=== PATIENT | male | born 1965 | race Caucasian/White ===

== ENCOUNTER 2020-06-10 07:13 | Outpatient (CLI) | payer OTHER | END 2020-06-10 23:59 | disposition home or self-care (01) | LOC: LAB 07:13 | PROVIDERS: ATTEND Orthopaedic Surgery | DX: Z01.812 Encounter for preprocedural laboratory examination (principal); Z11.59 Encounter for screening for other viral diseases; S83.231D Complex tear of medial meniscus, current injury, right knee, subsequent encounter; X58.XXXD Exposure to other specified factors, subsequent encounter ==

== ENCOUNTER 2020-06-11 10:04 | Outpatient (CLI) | payer OTHER ==
[2020-06-11 10:31] LABS: BASOPHILS % (AUTO) 0.9 % (0.0-2.0); EOSINOPHILS # (AUTO) 0.1 K/uL (0.0-0.7); EOSINOPHILS % (AUTO) 1.9 % (0.0-7.0); HEMATOCRIT 45.8 % (36.7-47.1); HEMOGLOBIN 15.3 g/dL (12.5-16.3); LYMPHOCYTES # (AUTO) 1.6 K/uL (20.0-40.0); LYMPHOCYTES % (AUTO) 29.9 % (20.5-51.5); MEAN CORPUSCULAR HEMOGLOBIN 28.2 uug (23.8-33.4); MEAN CORPUSCULAR HGB CONC 33 g/dL (32.5-36.3); MEAN CORPUSCULAR VOLUME 84.5 fL (73.0-96.2); MONOCYTES # (AUTO) 0.6 K/uL (2.0-10.0); MONOCYTES % (AUTO) 10.6 % (0.0-11.0); NEUTROPHILS # (AUTO) 3.1 K/uL (1.8-8.9); NEUTROPHILS % (AUTO) 56.7 % (38.5-71.5); PLATELET COUNT (AUTO) 263 K/uL (152-348); RED BLOOD CELL COUNT(AUTO) 5.42 MIL/uL (4.06-5.63); WHITE BLOOD COUNT (AUTO) 5.5 K/uL (3.6-10.2)
[2020-06-11 10:35] LABS: *BILIRUBIN,URIN NEGATIVE (NEGATIVE); *BLOOD, URINE NEGATIVE (NEGATIVE); *CLARITY,URINE CLEAR (CLEAR); *COLOR,URINE YELLOW (YELLOW); *KETONES,URINE NEGATIVE (NEGATIVE); *UROBILINOGEN,URINE 0.2 E.U./dl (NORMAL); LEUKOCYTE ESTERASE ,URINE NEGATIVE (NEGATIVE); NITRITE, URINE NEGATIVE (NEGATIVE); UGLUCOSE NEGATIVE (NEGATIVE)
[2020-06-11 10:47] LABS: POTASSIUM 4.2 mmol/L (3.5-5.1); TOTAL PROTEIN, SERUM 7.1 g/dL (6.4-8.2)
== END 2020-06-11 23:59 | disposition home or self-care (01) ==
LOC: LAB 10:04
PROVIDERS: ATTEND Orthopaedic Surgery
DX: Z01.818 Encounter for other preprocedural examination (principal); S83.241A Other tear of medial meniscus, current injury, right knee, initial encounter; M17.31 Unilateral post-traumatic osteoarthritis, right knee; I51.7 Cardiomegaly; X58.XXXA Exposure to other specified factors, initial encounter; Y93.89 Activity, other specified; Y92.89 Other specified places as the place of occurrence of the external cause; Y99.0 Civilian activity done for income or pay
CPT/HCPCS: 36415; 71045; 85025; 85730; 93005; A4663

== ENCOUNTER 2020-06-13 06:36 | Day surgery (SDC) | payer OTHER ==
[2020-06-13] MEDS ORDERED: IV NORMAL SALINE 1000 ML BAG IV ONE (06:37)
[2020-06-13] MEDS ORDERED: SEVOFLURANE 250 ML BOTTLE IH ONE (06:37)
[2020-06-13] MEDS ORDERED: PROPOFOL 200 MG/20 ML BOTTLE IV ONE (06:37)
[2020-06-13] MEDS ORDERED: DEXAMETHASONE SOD PHOSPHATE 4 MG INJ IV ONE (06:37)
[2020-06-13] MEDS ORDERED: CEFAZOLIN 1 G VIAL IM ONE (06:37)
[2020-06-13] MEDS ORDERED: IV LACTATED RINGERS SOLUTION 1,000 ML BAG IV ONE (06:37)
[2020-06-13] MEDS ORDERED: KETOROLAC TROMETHAMINE 30 MG INJ IM ONE (06:37)
[2020-06-13] MEDS ORDERED: LIDOCAINE-MPF 2% 5 ML VIAL IJ ONE (06:37)
[2020-06-13] MEDS ORDERED: ONDANSETRON 4 MG/2 ML VIAL IV ONE (06:37)
[2020-06-13] MEDS ORDERED: BUPIVACAINE/EPI PF 0.25% 30 ML VIAL ONE (07:21)
[2020-06-13] MEDS ORDERED: MORPHINE SULFATE PF 10 MG/10 ML AMPUL IV ONE (07:21)
[2020-06-13] MEDS ORDERED: FENTANYL CITRATE 100 MCG/2 ML AMPUL ONE (09:57)
[2020-06-13] MEDS ORDERED: TRAMADOL HCL 50 MG TABLET ONE (11:17)
== END 2020-06-13 11:35 | disposition home or self-care (01) ==
LOC: DS 06:36
PROVIDERS: ATTEND Orthopaedic Surgery
DX: S83.241A Other tear of medial meniscus, current injury, right knee, initial encounter (principal); M94.261 Chondromalacia, right knee; M65.88 Other synovitis and tenosynovitis, other site; M19.90 Unspecified osteoarthritis, unspecified site; F41.9 Anxiety disorder, unspecified; Z79.899 Other long term (current) drug therapy; Z98.890 Other specified postprocedural states; X58.XXXA Exposure to other specified factors, initial encounter; Y93.89 Activity, other specified; Y92.89 Other specified places as the place of occurrence of the external cause; Y99.8 Other external cause status
CPT/HCPCS: J0690; J1100; J1885; J2274; J2405; J3010; J3490; J7030; J7120

== ENCOUNTER 2020-10-08 10:10 | Outpatient (CLI) | payer OTHER ==
[2020-10-08 10:49] LABS: BASOPHILS % (AUTO) 0.4 % (0.0-2.0); EOSINOPHILS # (AUTO) 0.1 K/uL (0.0-0.7); EOSINOPHILS % (AUTO) 2.1 % (0.0-7.0); HEMOGLOBIN 15.2 g/dL (12.5-16.3); LYMPHOCYTES # (AUTO) 1.5 K/uL (20.0-40.0); MEAN CORPUSCULAR HEMOGLOBIN 27.9 uug (23.8-33.4); MEAN CORPUSCULAR HGB CONC 33 g/dL (32.5-36.3); MEAN CORPUSCULAR VOLUME 84.4 fL (73.0-96.2); MONOCYTES # (AUTO) 0.4 K/uL (2.0-10.0); MONOCYTES % (AUTO) 8.9 % (0.0-11.0); NEUTROPHILS % (AUTO) 59.6 % (38.5-71.5); PLATELET COUNT (AUTO) 263 K/uL (152-348); RED BLOOD CELL COUNT(AUTO) 5.45 MIL/uL (4.06-5.63)
[2020-10-08 10:50] LABS: CREATININE 0.9 mg/dL (0.6-1.3); POTASSIUM 4.1 mmol/L (3.5-5.1)
[2020-10-08 10:56] LABS: TOTAL PROTEIN, SERUM 6.9 g/dL (6.4-8.2)
[2020-10-08 11:01] LABS: *BILIRUBIN,URIN NEGATIVE (NEGATIVE); *CLARITY,URINE CLEAR (CLEAR); *COLOR,URINE YELLOW (YELLOW); *KETONES,URINE NEGATIVE (NEGATIVE); *UROBILINOGEN,URINE 0.2 E.U./dl (NORMAL); LEUKOCYTE ESTERASE ,URINE NEGATIVE (NEGATIVE); NITRITE, URINE NEGATIVE (NEGATIVE); UGLUCOSE NEGATIVE (NEGATIVE)
[2020-10-08 11:03] LABS: *BLOOD, URINE TRACE (NEGATIVE)
[2020-10-08 19:48] LABS: BACTERIA,URINE NONE SEEN /HPF (NONE SEEN); SQUAMOUS EPITHELIAL CELL,UR NONE SEEN /HPF (NONE SEEN); WBC,URINE 0-3 /HPF (0-3)
== END 2020-10-08 23:59 | disposition home or self-care (01) ==
LOC: LAB 10:10
PROVIDERS: ATTEND Orthopaedic Surgery
DX: Z01.818 Encounter for other preprocedural examination (principal)
CPT/HCPCS: 36415; 71045; 85025; 85730; 93005; A4663

== ENCOUNTER 2020-10-10 06:10 | Day surgery (SDC) | payer OTHER ==
[2020-10-10] MEDS ORDERED: PROPOFOL 200 MG/20 ML BOTTLE IV ONE (06:11)
[2020-10-10] MEDS ORDERED: IV LACTATED RINGERS SOLUTION 1,000 ML BAG IV ONE (06:11)
[2020-10-10] MEDS ORDERED: IV NORMAL SALINE 1000 ML BAG IV ONE (06:11)
[2020-10-10] MEDS ORDERED: SEVOFLURANE 250 ML BOTTLE IH ONE (06:11)
[2020-10-10] MEDS ORDERED: ONDANSETRON 4 MG/2 ML VIAL IV ONE (06:11)
[2020-10-10] MEDS ORDERED: LIDOCAINE-MPF 2% 5 ML VIAL IJ ONE (06:11)
[2020-10-10] MEDS ORDERED: METOCLOPRAMIDE HCL 10 MG/2 ML VIAL IV ONE (06:11)
[2020-10-10] MEDS ORDERED: KETOROLAC TROMETHAMINE 30 MG INJ IM ONE (06:11)
[2020-10-10] MEDS ORDERED: CEFAZOLIN 1 G VIAL IM ONE (06:11)
[2020-10-10] MEDS ORDERED: MORPHINE SULFATE PF 10 MG/10 ML AMPUL IV ONE (07:34)
[2020-10-10] MEDS ORDERED: BUPIVACAINE/EPI PF 0.25% 30 ML VIAL ONE (07:35)
[2020-10-10] MEDS ORDERED: MIDAZOLAM HCL 2 MG/2 ML VIAL ONE (07:38)
[2020-10-10] MEDS ORDERED: FENTANYL CITRATE 250 MCG/5 ML AMPUL ONE (07:38)
[2020-10-10] MEDS ORDERED: SEVOFLURANE 250 ML BOTTLE ONE (08:38)
[2020-10-10] MEDS ORDERED: TRAMADOL HCL 50 MG TABLET ONE (11:16)
== END 2020-10-10 12:35 | disposition home or self-care (01) ==
LOC: DS 06:10
PROVIDERS: ATTEND Orthopaedic Surgery
DX: M17.11 Unilateral primary osteoarthritis, right knee (principal); S83.241A Other tear of medial meniscus, current injury, right knee, initial encounter; M94.261 Chondromalacia, right knee; M65.88 Other synovitis and tenosynovitis, other site; E66.01 Morbid (severe) obesity due to excess calories; F41.9 Anxiety disorder, unspecified; Z79.899 Other long term (current) drug therapy; Z98.890 Other specified postprocedural states; X58.XXXA Exposure to other specified factors, initial encounter; Y93.89 Activity, other specified; Y92.89 Other specified places as the place of occurrence of the external cause; Y99.8 Other external cause status
CPT/HCPCS: 29876; J0690; J1885; J2250; J2274; J2405; J2765; J3010; J3490 ×2; J7120 ×2; J7030

== ENCOUNTER 2020-10-20 10:30 | Emergency (ER) | payer OTHER ==
[~2020-10-20] VITALS: Ht 180.3 cm; Wt 113.4 kg
--- NOTE | 2020-10-20 12:57 | NUR ---
Patient discharged to home in stable condition. Written and verbal after care instructions given. Patient verbalizes understanding of instructions. Stressed follow up or return to ER for worsening s/s.
== END 2020-10-20 12:58 | disposition home or self-care (01) ==
LOC: ER 10:30
DX: T81.41XA Infection following a procedure, superficial incisional surgical site, initial encounter (principal); M17.12 Unilateral primary osteoarthritis, left knee
CPT/HCPCS: 87070; A4663